=== PATIENT | female | born 1960 | race Two or more races ===

== ENCOUNTER → 2018-03-30 | Outpatient (CLI) | payer OTHER ==
[~2018-03-30] MED LIST: CELE50CA PO; HYDR-2161 PO; SULF1TAB24 PO
== END | disposition home or self-care (01) ==
LOC: SPEC 17:06
PROVIDERS: ATTEND Nurse Practitioner Family
DX: N95.2 Postmenopausal atrophic vaginitis (principal); E11.9 Type 2 diabetes mellitus without complications
CPT/HCPCS: 36415; 87480; 87510; 87660

== ENCOUNTER → 2018-05-29 | Outpatient (CLI) | payer OTHER ==
--- NOTE | 2018-06-05 09:39 | RAD ---
DATE: 05/29/2018 10:00 AM EXAM: DIGITAL SCREEN BILAT W/CAD HISTORY: routine screening evaluation. COMPARISON: Prior mammographic imaging dating back to 03/15/2012 Bilateral full field craniocaudal and mediolateral oblique images were obtained using digital technique. This study was interpreted with the benefit of Computerized Aided Detection (CAD ). Breast Density: The breast parenchyma is heterogeneously dense, which could reduce sensitivity of mammography. Breast parenchyma level C. FINDINGS: Benign calcifications are present. Asymmetric breast tissue in the posterior depth left breast is stable to slightly less conspicuous, 2 at least prior mammographic imaging 03/15/2012. Otherwise, the parenchymal pattern appears stable. No suspicious masses, microcalcifications or architectural distortion is present to suggest malignancy in either breast. The visualized axillae are unremarkable. IMPRESSION: No mammographic evidence of malignancy. BI-RADS CATEGORY: 2 BENIGN FINDING(S) RECOMMENDED FOLLOW-UP: 12M 12 MONTH FOLLOW-UP Annual screening mammography is recommended, unless clinically indicated sooner based on symptoms or change in physical exam. PQRS compliance statement: Patient information was entered into a reminder system with a target due date 05/29/2019 for the next mammogram. Mammography is a sensitive method for finding small breast cancers, but it does not detect them all and is not a substitute for careful clinical examination. A negative mammogram does not negate a clinically suspicious finding and should not result in delay in biopsying a clinically suspicious abnormality. "Our facility is accredited by the [employer] Mammography Program." SHERROND
== END | disposition home or self-care (01) ==
LOC: MAMMO 08:15
PROVIDERS: ATTEND Nurse Practitioner Family
DX: Z12.31 Encounter for screening mammogram for malignant neoplasm of breast (principal)
CPT/HCPCS: 77067

== ENCOUNTER → 2020-06-30 | Outpatient (CLI) | payer OTHER ==
[~2020-06-30] MED LIST changes: -HYDR-2161 PO; +HYDR-3072 PO
--- NOTE | 2020-07-01 09:14 | RAD ---
PQRS Compliance Statement: One or more of the following individualized dose reduction techniques were utilized for this examinat ion: 1. Automated exposure control 2. Adjustment of the mA and/or kV according to patient size 3. Use of iterative reconstruction technique CT ABDOMEN W/O CONTRAST Clinical Indication: Reason: EPIGASTRIC PAIN, RIGHT SIDED PAIN Comparison: CT abdomen and pelvis of contrast, July 01, 2015. TECHNIQUE: Helical CT imaging of the abdomen is performed without IV or oral contrast. Findings: Lung bases are clear. The cardiac size is normal. Cholecystectomy. There is fatty infiltration of the liver. The spleen, pancreas, adrenal glands, and abdominal aorta caliber are normal. There is a tiny angiomyolipoma in the upper pole of the right kid eileen. There is no hydronephrosis or perinephric stranding. No obvious abnormality of the stomach. No dilated small bowel. There is scattered stool in visualized colon. No colon wall thickening is seen. The appendix is not imaged. There is no abdominal adenopath y or free fluid. There is mild grade 1 anterolisthesis of L4 on L5. Endplate spurring lower thoracic spine. IMPRESSION: 1. No acute abdominal abnormality. 2. Fatty infiltration of the liver. 3. Tiny right renal angiomyolipoma. Electronically signed by: Matias Farrell MD (07/01/2020 9:12 AM) [id number]
== END ==
LOC: CT 09:50
PROVIDERS: ATTEND Physician Assistant Medical
DX: D17.71 Benign lipomatous neoplasm of kidney (principal); K76.0 Fatty (change of) liver, not elsewhere classified; M43.16 Spondylolisthesis, lumbar region; M46.04 Spinal enthesopathy, thoracic region
CPT/HCPCS: 74150

== ENCOUNTER → 2020-08-20 | Outpatient (CLI) | payer OTHER ==
--- NOTE | 2020-08-21 13:54 | RAD ---
MR#: [id number] Date of Study: 08/20/2020 Ordering Physician: MARANDA GARCIA Referring Physician: ALEXANDRA RAMIREZ Tech: APPROVED REPORT Test Type: Exercise Stress Nurse/Tech: DEB Mary Test Indications: Chest pain Cardiac History: none Medications: see EHR Medical History: see EHR Resting ECG: SR Resting Heart Rate: 76 bpm Resting Blood Pressure: 149/63mmHg Pretest Chest Pain: None Nurse/Tech Notes Consent: The procedure was explained to the patient in lay terms. Informed consent was witnessed. Arben tubbs was entered into [employer]. History and Stress Test performed by DEB Mary POST EXERCISE Reason for Termination: Fatigue Max HR: 192 bpm 141% of Maximum Predicted HR: 136 bpm Exercise duration: 7:15 min:sec, Stage Exercise capacity: 10METs Max Blood Pressure: 160/73mmHg Blood Pressure response to exercise: Normal blood pressure response during stress. Chest Pain: No. Arrhythmia: No. ST Change: No. INTERPRETATION Stress EKG Conclusion: Baseline EKG showed sinus rhythm. No ischemic changes at peak stress. No arr hythmias. Conclusion 1. Treadmill exercise stress electrocardiogram did not show any significant evidence of ischemia. 2. Patient had good activity tolerance. Low risk study. Signed by : Trent Marshall, Electronically Approved : 08/21/2020 13:53:52
== END ==
LOC: NM 08:40
PROVIDERS: ATTEND Internal Medicine Cardiovascular Disease
DX: R07.9 Chest pain, unspecified (principal)
CPT/HCPCS: 93017

== ENCOUNTER → 2020-09-04 | Outpatient (CLI) | payer OTHER ==
[2020-07-02 01:33] VITALS: BP 184/74
--- NOTE | 2020-09-04 08:39 | EKG ---
[address] [address] Test Date: 2020-09-04 Test Time: 08:27:30 Pat Name: FABIANA MENDOZA Department: Room: Gender: F Peanut Shaker: PABLO : 1960 Requested By: MARANDA GARCIA Order Number: [id number] Reading MD: Measurements Intervals [place] Rate: 68 P: 33 FL: 162 QRS: 5 QRSD: 80 T: 36 QT: 408 QTc: 439 Interpretive Statements SINUS RHYTHM NORMAL ECG RI6.02 No previous ECG available for comparison
== END ==
LOC: NM 07:32
PROVIDERS: ATTEND Internal Medicine Cardiovascular Disease
DX: R07.9 Chest pain, unspecified (principal)
CPT/HCPCS: 93005

== ENCOUNTER → 2021-01-30 | Outpatient (CLI) | payer OTHER ==
[2020-07-02 01:33] VITALS: BP 184/74
--- NOTE | 2021-01-30 16:10 | RAD ---
INDICATION: 58 year-old female presents for further evaluation of a palpable abnormality in the left breast. TECHNIQUE: Full field craniocaudal and mediolateral oblique images of both breasts with additional d iagnostic images were obtained using digital technique with tomosynthesis and analyzed with computer -aided detection software. Targeted high resolution sonography of the region of concern was also perf ormed. COMPARISON: 05/29/2018 05/05/2016 04/21/2015 BREAST COMPOSITION: There are scattered areas of fibroglandular density. FINDINGS: Heterogeneous microcalcifications in the superior left breast with associated focal asymmetry. No significant masses, suspicious calcifications, or other findings suggestive of malignancy in the r ight breast. Given the focal asymmetry in the left breast, sonographic imaging was performed. ULTRASOUND FINDINGS: Targeted ultrasound of the mammographic and patient detected area of concern was performed. Sonographic imaging in the inferior, medial left breast at the site of palpable abnormality: Parenchy mal tissue of normal echotexture is present. At the 11:00 position, 8 cm from the nipple a 0.6 x 0.4 x 0.6 cm hypoechoic nodule is seen. IMPRESSION: 1. Left breast microcalcifications with suspicious imaging features for which tissue biopsy is recomm ended and can be performed with stereotactic imaging guidance. RECOMMENDATION: Biopsy recommended. The results were discussed with the patient at the end of the examination. BIRADS 4: SUSPICIOUS Electronically signed by: Rancho Ann MD (01/30/2021 4:07 PM) [id number]
== END ==
LOC: MAMMO 13:55
PROVIDERS: ATTEND Family Medicine
DX: N63.22 Unspecified lump in the left breast, upper inner quadrant (principal); R92.0 Mammographic microcalcification found on diagnostic imaging of breast; E11.9 Type 2 diabetes mellitus without complications; E78.5 Hyperlipidemia, unspecified; F41.9 Anxiety disorder, unspecified; E03.9 Hypothyroidism, unspecified; M19.90 Unspecified osteoarthritis, unspecified site
CPT/HCPCS: 76642; 77066